=== PATIENT | female | born 1940 | race Caucasian/White ===

== ENCOUNTER 2025-04-12 07:24 | Outpatient (OUT) | payer MEDICARE, SELFPAY ==
--- NOTE | 2025-04-12 06:45 | NM_ITS ---
Patient Name: ILIANA LAMBERT MR#: [id number] : 1940 Exam Date: 04/12/2025 Ordering Doctor: DR NNEKA ENRIQUEZ M.D. RADIOLOGY REPORT PROCEDURE: NM AFTAB PERF SPECT REST STR COMPARISON: None. INDICATIONS: SHORTNESS OF BREATH, CORONARY ARTERY DISEASE TECHNIQUE: Exam Description: Stress/Rest two day protocol gated SPECT Rest Imagin.9 mCi Tc-99m Cardiolite IV on 04/12/2025 Stress Imaging 30.6 mCi Tc-99m Cardiolite IV on 04/12/2025 Exercise Protocol: 0.4 mg Lexiscan given IV Heart Rate (bpm): Rest: 95 Max: 122 PMHR: 89 Blood Pressure: Rest: 166/84 Max: 183/96 Symptoms: Rest and peak stress ECG findings were pending, and the exercise portion of the study was pending per attending physician [facility]. For more details, please see separate cardiac stress test report. FINDINGS: QUALITY OF STUDY: Good PERFUSION DEFECT: LOCATION: N/A SIZE: N/A SEVERITY: N/A TYPE: N/A WALL MOTION: Normal wall motion LV SIZE: 52 mL. TID / TCD: 0.8 LVEF: Calculated EF 72%. SUMMARY: Myocardial perfusion imaging study is normal CONCLUSION: 1. Myocardial perfusion is normal soft tissue attenuation 2. Global left ventricular systolic function is hyperdynamic; ejection fraction 72% 3. No significant transient ischemic dilatation Dictated by: Jag Duran M.D. on 04/12/2025 at 14:20 Approved by: Jag Duran M.D. on 04/12/2025 at 14:22
--- NOTE | 2025-04-12 09:01 | PC.NURSE ---
Nursing Note Cardiac Stress Test Reviewed: Medication, allergies and patient history reviewed. Stress Test: [ ] Patient tolerated stress test well. [x ] Patient unable to tolerate walking on treadmill. Switched to Lexiscan stress test. [x ] No chest pain noted per patient [ ] Chest pain that resolved prior to leaving stress lab. [x ] No dyspnea noted. [ ] Dyspnea that resolved prior to leaving stress lab. [x ] Patient left stress lab asymptomatic and hemodynamically stable. [ ] Patient taken to the Emergency Room due to non-resolving symptoms following stress test. [ ] Patient achieved target heart rate. [ ] Patient unable to achieve target heart rate. [x ] Aminophylline administered as reversal agent to Lexiscan (Regadenoson). [ ] Nitro administered. Nursing Comments:Pt was going to attempt the TM but stated she was unable to. Pt did not want the Lexiscan test is the reason she was going to attempt the TM but after talking with pt she agreed to the Lexiscan test. Pt tolerated well but did need Aminophylline to reverse the Lexiscan due to nausea and stated she did not feel right. Pt did not vomit but did have some dry heaving. Pt had no CP and minimal SOB. Pt stated she felt back to normal within 5 min of Aminophylline being given. Pt left stress lab in WC to go down for breakfast prior to second set of images.
[2025-04-12] MEDS: REGADENOSON 0.4 MG/5 ML SYRINGE IV (09:08)
[2025-04-12] MEDS: AMINOPHYLLINE 250 MG/10 ML VIAL 50 MG IVP (09:08)
--- NOTE | 2025-04-12 10:00 | CA_ITS ---
Patient Name: ILIANA LAMBERT MR#: [id number] : 1940 Exam Date: 04/12/2025 Ordering Doctor: DR NNEKA SINHA M.D. ECHOCARDIOGRAM REPORT PROCEDURE: CA ECHO DOPPLER COMPLETE INDICATIONS: Dyspnea, aortic regurgitation, FL, cardiac stents COMPARISON: None. DESCRIPTION: COMPLETE ECHOCARDIOGRAM Real-time transthoracic echocardiography with 2D, M-mode, spectral and color flow Doppler performed. QUALITY: Technical quality was good. LEFT VENTRICLE: Normal chamber size. Normal left ventricular wall thickness. Normal systolic function. Estimated left ventricular ejection fraction is 55-60%. LV EF: Normal left ventricular ejection fraction, (>55%). DIASTOLIC: Grade 1 diastolic dysfunction. ATRIAL SEPTUM: Visually appears intact. LEFT ATRIUM: Moderate dilatation. RIGHT ATRIUM: Moderate dilatation. RIGHT VENTRICLE: Mild dilatation. Normal right ventricular systolic function. TRICUSPID VALVE: Normal mobility and thickness. No stenosis with moderate regurgitation. Doppler studies reveal moderately (45-60) elevated right sided pressures. RVSP 56 mmHg MITRAL VALVE: Normal mobility and thickness. No evidence of mitral valve stenosis. Mild mitral annular calcification. No mitral regurgitation. AORTIC VALVE: Normal trileaflet appearance. No visible sclerosis. Normal leaflet mobility. No evidence of aortic valve stenosis. Mild aortic regurgitation. AORTIC ROOT: Normal diameter and appearance, measuring 3.0 cm. PULMONIC VALVE: Normal thickness and mobility. No stenosis. Mild regurgitation. PERICARDIUM: No evidence of pericardial effusion. IVC: Collapses with inspiration. IVC is normal in size. PLEURA: CONCLUSION: 1. Normal left ventricular size and systolic function. Estimated LVEF is 55 to 60%. 2. Mildly dilated right ventricle with normal systolic function. 3. Moderate biatrial dilatation. 4. Mild diastolic dysfunction. 5. Moderate tricuspid regurgitation. 6. Mild aortic and pulmonic regurgitation. 7. Moderately elevated right-sided pressures. RVSP is 56 mmHg. Adult Echocardiography Procedure Report Left Ventricle LVEDD (3.7 - 5.6 cm): 4.17 cm LVESD (2.2 - 4.0 cm): 2.86 cm LVIVS thickness (0.6 - 1.2 cm): 1.01 cm LVPW thickness (0.5 - 1.0 cm): 0.73 cm e': 0.09 m/s E - e': 6.61 LVOT Max Gradient: 4.24 mm[Hg] LVOT Area (cm2): 1.03 m/s Peak Velocity (LVOT): 1.03 m/s Mean Velocity (LVOT): 0.58 m/s LVOT Diameter 2.01 cm Left Ventricular Ejection Fraction: 55-60% Left Atrium LA Volume Index (2D A2C): 33.27 ml/m2 Left Atrium Systolic Dimension: 3.25 cm Mitral Valve MV E to A Ratio: 0.61 Mitral Valve A-Wave Peak Velocity: 0.94 m/s Mitral Valve E-Wave Peak Velocity: 0.57 m/s Right Ventricle Aorta AO Root Diam: 3.03 cm Aortic Valve AoV Area (Peak Jose): 2.23 cm2, 2.23 cm2 AoV Area (VTI): 2.43 cm2, 2.43 cm2 Peak Velocity(Antegrade Flow): 1.46 m/s Peak Gradient(Antegrade Flow): 8.52 mm[Hg] Mean Velocity(Antegrade Flow): 0.92 m/s Mean Gradient(Antegrade Flow): 3.98 mm[Hg] Velocity Time Integral: 24.81 cm Tricuspid Valve Peak Velocity (Regurgitant Flow): 3.29 m/s, 3.00 m/s, 3.65 m/s Pulmonic Valve Peak Gradient: 2.50 mm[Hg], 2.95 mm[Hg] Right Atrium Right Atrium Systolic Pressure: 32.06 ml, 32.06 ml Dictated by: Nneka Sinha M.D. on 04/12/2025 at 20:32 Approved by: Nneka Sinha M.D. on 04/12/2025 at 20:37
--- NOTE | 2025-04-12 14:17 | PM.STRESS ---
Stress Test Stress Test Requesting physician: NNEKA ENRIQUEZ Procedure: Lexiscan stress test General Information: Reason for Stress Test: [SOB, coronary artery disease] Cardiac History and Risk Factors: [CAD, MO, stents, HTN, dyslipidemia] Resting 12 - Lead Electrocardiogram: Normal sinus rhythm Non specific ST abnormality Abnormal ECG Stress Test: Protocol: [Lexiscan stress test] Exercise Capacity: [N/A] Blood Pressure Response: [N/A] Rhythm: [Sinus, PVCs] ST - Response: [No significant ST T wave changes] Patient Response: [No chest pain; patient had nausea and SOB. Symptoms resolved after aminophylline] Interpretation: 1. No ischemic EKG changes on Lexiscan stress test 2. Nuclear images are to be read, interpreted and reported seperately
== END 2025-04-12 07:25 | disposition home or self-care (01) ==
LOC: NM 07:24
PROVIDERS: PCP Family Medicine; Visit Provider Internal Medicine Interventional Cardiology
DX: R06.02 Shortness of breath (principal); I25.118 Atherosclerotic heart disease of native coronary artery with other forms of angina pectoris
CPT/HCPCS: 78452; 93017; 93306; A9500; J0280; J2785